=== PATIENT | male | born 1960 | race Caucasian/White ===

== ENCOUNTER 2017-11-26 06:03 | Inpatient (IN) | payer OTHER, BC ==
[2017-11-23 12:15] VITALS: BMI 29.6
--- NOTE | 2017-11-25 21:51 | HP ---
Admitting History and Physical - Admission Chief Complaint: right knee osteoarthritis x years History of Present Illness: 57 year old male presents today regarding his right knee. Longstanding history of right knee osteoarthritis. Patient complains of pain, limited ROM, difficulty ambulating and difficulty with activities of daily living. Patient has failed conservative treatment measures including PO medication, activity modification, injections and exercise programs. At this point, patient wishes to proceed with surgical intervention - right total knee arthroplasty - MAKOplasty. History Source: Patient - Past Medical History Cardiovascular: Yes: HTN, Hyperlipdemia Endocrine: Yes: Diabetes Mellitus - Past Surgical History Additional Past Surgical History: See written history & physical. - Smoking History Smoking history: Former smoker Have you smoked in the past 12 months: Yes If you are a former smoker, when did you quit?: 04/2017 - Alcohol/Substance Use Hx Alcohol Use: Yes (OCCASIONALLY) Home Medications - Allergies Allergies/Adverse Reactions: Allergies Allergy/AdvReac Type Severity Reaction Status Date / Time No Known Drug Allergies Allergy Verified 10/18/17 15:41 - Home Medications Home Medications: Ambulatory Orders Atorvastatin Ca [Lipitor] 10 mg PO DAILY 10/18/17 Glimepiride 4 mg PO BID 10/18/17 Lisinopril 10 mg PO HS 10/18/17 Metformin HCl [Metformin HCl ER] 1,000 mg PO BID 10/18/17 Tramadol HCl 50 mg PO QID PRN 10/18/17 Review of Systems - Review of Systems Musculoskeletal: reports: Crepitus (right knee), Decreased ROM (right knee), Joint Pain (right knee), Joint Swelling (right knee) Physical Examination Constitutional: Yes: Well Nourished, No Distress Eyes: Yes: Conjunctiva Clear HENT: Yes: Atraumatic, Normocephalic Neck: Yes: Supple Cardiovascular: Yes: Regular Rate and Rhythm Respiratory: Yes: Regular Gastrointestinal: Yes: Soft ...Rectal Exam: Yes: Deferred Musculoskeletal: Yes: Joint Stiffness (right knee), Joint Swelling (right knee) Assessment/Plan 57 year old male presents today regarding his right knee. Longstanding history of left knee osteoarthritis. Patient complains of pain, limited ROM, difficulty ambulating and difficulty with activities of daily living. Patient has failed conservative treatment measures including PO medication, activity modification, injections and exercise programs. At this point, patient wishes to proceed with surgical intervention - right total knee arthroplasty - MAKOplasty. Pros, cons, risks, benefits and alternatives of a right total knee arthroplasty - MAKOplasty , were discussed with the patient at length. Patient confirms their understanding and consents to proceed with a right total knee arthroplasty - MAKOplasty.
[2017-11-26] MEDS ORDERED: TRANEXAMIC ACID 1000 MG/10 ML VIAL IVPUSH ONE ×3 (06:24→11:03)
[2017-11-26] MEDS ORDERED: ROPIVICAINE 0.2%/MORPH PF/KETOROLAC - 51ML DISP.SYRINGE IA ONE ×3 (06:24→11:05)
[2017-11-26] MEDS ORDERED: CEFAZOLIN 2 GM in DEXTROSE 5%-WATER - 50 ML IVPB ONE (06:24)
[2017-11-26] MEDS: oxyCODONE HCL 10 MG SUSTAINED ACTING TABLET PO ONE ×2 (06:55→18:20)
[2017-11-26] MEDS: GABAPENTIN 300 MG CAPSULE (FP) PO ONE ×2 (06:55→18:20)
[2017-11-26] MEDS: CELECOXIB 200 MG CAPSULE PO ONE ×2 (06:55→18:20)
[2017-11-26] MEDS: PANTOPRAZOLE 40 MG TABLET (FP) PO ONE ×2 (06:55→18:21)
[2017-11-26] MEDS ORDERED: BUPIVACAINE LIPOSOME/PF (EXPAREL) 266 MG/20 ML VIAL ONE (07:26)
[2017-11-26] MEDS ORDERED: MIDAZOLAM HCL 2 MG/2 ML SINGLE DOSE VIAL ONE ×2 (07:27→08:19)
[2017-11-26] MEDS ORDERED: BUPIVACAINE HCL/PF 2.5 MG/ML - 30 ML VIAL IJ ONE ×2 (07:28→07:43)
[2017-11-26] MEDS ORDERED: SODIUM CHLORIDE 0.9% P/F 10 ML VIAL IJ ONE (07:28)
[2017-11-26] MEDS ORDERED: PROPOFOL 20 ML ONE ×7 (08:19→10:50)
[2017-11-26] MEDS ORDERED: SUCCINYLCHOLINE CHLORIDE 200 MG/10 ML VIAL ONE (08:19)
--- NOTE | 2017-11-26 08:20 | PN ---
Progress Note (short form) - Note Progress Note: Pt counseled preoperatively about strict diabetes management. Current A1c is 8.5 down from 10+ previously. He states that BG over the last 2 weeks has been 200's and 319 once but now is in the low 100s. I told him that he is high risk for infection unless he maintains strict glycemic control. He must carefully regulate his diet. Diabetes management isn't strictly a matter of taking prescribed medications without any personal responsibility for lifestyle. If he does not manage his diabetes well and gets an infection then that will require further surgeries and months of treatment and in the end the final result will be compromised. We discussed this preoperatively as well and I gave him information about periprosthetic joint infections to help motivate him to adopt a healthy lifestyle before surgery.
[2017-11-26] MEDS ORDERED: ePHEDrine SULFATE 50 MG/1 ML AMPULE ONE (08:41)
[2017-11-26] MEDS ORDERED: VANCOMYCIN 1,000 MG VIAL (RESTRICTED TO ID ONLY) IVPB ONE ×2 (09:28→11:02)
[2017-11-26] MEDS ORDERED: ceFAZolin SODIUM 1 GM VIAL ONE (11:27)
[2017-11-26] MEDS ORDERED: ONDANSETRON 4 MG/2 ML VIAL ONE (11:27)
[2017-11-26] MEDS ORDERED: DEXAMETHASONE SOD PHOSPHATE 4 MG/1 ML VIAL ONE (11:27)
[2017-11-26] MEDS ORDERED: TRANEXAMIC ACID 1000 MG/10 ML VIAL ONE (11:27)
--- NOTE | 2017-11-26 11:34 | OP ---
Operative Note - Note: Operative Date: 11/26/17 Pre-Operative Diagnosis: right knee OA Operation: Right SUKH TKA, removal of hardware Post-Operative Diagnosis: Same as Pre-op Surgeon: Juwan Holbrook Store Loss Prevention Manager: Gila Llamas Anesthesia: Spinal Estimated Blood Loss (mls): 100
[2017-11-26] MEDS ORDERED: ONDANSETRON 4 MG/2 ML VIAL IVPUSH PRN ×2 (11:35→12:07)
[2017-11-26] MEDS ORDERED: MAGNESIUM HYDROX 2400MG/30ML ORAL SUSPENSION 30 ML CUP PO PRN (11:35)
[2017-11-26] MEDS ORDERED: MAG HYDROX/AL HYDROX/SIMETH 30 ML UNIT-DOSE CUP PO PRN (11:35)
[2017-11-26] MEDS ORDERED: ACETAMINOPHEN 1000 MG/100 ML VIAL (NON FORMULARY) IVPB ONE ×2 (11:40→12:10)
[2017-11-26] MEDS ORDERED: LACTATED RINGERS SOLUTION 1,000 ML IV SCH (11:45)
[2017-11-26] MEDS ORDERED: traMADol HCL 50 MG TABLET PO ONE (12:05)
[2017-11-26] MEDS ORDERED: PROMETHAZINE HCL 25 MG/1 ML VIAL IVPB PRN (12:07)
[2017-11-26] MEDS ORDERED: oxyCODONE HCL 5 MG TABLET PO PRN (12:07)
[2017-11-26] MEDS ORDERED: KETOROLAC TROMETHAMINE 30 MG/1 ML VIAL IVPB ONE (12:08)
[2017-11-26] MEDS ORDERED: ONDANSETRON 4 MG/2 ML VIAL IVPUSH ONE (12:32)
[2017-11-26] MEDS ORDERED: oxyCODONE HCL 5 MG TABLET ONE (13:14)
[2017-11-26] MEDS: oxyCODONE HCL 5 MG TABLET PO PRN ×3 (16:20→22:43)
[2017-11-26] MEDS: GLIMEPIRIDE 2 MG TABLET (FP) PO SCH (16:20)
[2017-11-26] MEDS: KETOROLAC TROMETHAMINE 30 MG/1 ML VIAL IVPUSH SCH ×3 (18:19→22:44)
[2017-11-26] MEDS: traMADol HCL 50 MG TABLET PO SCH ×3 (18:19→22:44)
[2017-11-26] MEDS: CEFAZOLIN 2 GM/D5W 2 GM/50 ML ML IVPB SCH (18:20)
[2017-11-26] MEDS ORDERED: DEXAMETHASONE SOD PHOSPHATE 10 MG/1 ML VIAL IVPB ONE (20:00)
[2017-11-26] MEDS: SENNOSIDES/DOCUSATE COMBO (SENNA PLUS) TABLET (UD) PO SCH (21:29)
[2017-11-26] MEDS: oxyCODONE HCL 10 MG SUSTAINED ACTING TABLET PO SCH (21:29)
[2017-11-26] MEDS: LISINOPRIL 10 MG TABLET (FP) PO SCH (21:30)
[2017-11-26] MEDS: CELECOXIB 200 MG CAPSULE PO SCH (21:30)
[2017-11-26] MEDS: ATORVASTATIN CA 10 MG TABLET (FP) PO SCH (21:30)
[2017-11-26] MEDS: ASCORBIC ACID 500 MG TABLET (FP) PO SCH (21:30)
[2017-11-26] MEDS: GABAPENTIN 300 MG CAPSULE (FP) PO SCH (21:30)
[2017-11-27] MEDS: CEFAZOLIN 2 GM/D5W 2 GM/50 ML ML IVPB SCH (02:00)
[2017-11-27] MEDS: traMADol HCL 50 MG TABLET PO SCH ×4 (05:30→23:09)
[2017-11-27] MEDS: KETOROLAC TROMETHAMINE 30 MG/1 ML VIAL IVPUSH SCH (05:35)
[2017-11-27] MEDS: oxyCODONE HCL 5 MG TABLET PO PRN ×2 (06:00→23:09)
[2017-11-27] MEDS: GLIMEPIRIDE 2 MG TABLET (FP) PO SCH ×2 (06:27→16:23)
[2017-11-27 08:13] LABS: HEMATOCRIT 34.8 % (35.4-49); HEMOGLOBIN 11.8 GM/dl (11.7-16.9); MCH 28.6 pg (25.7-33.7); MEAN CELL VOLUME 84.1 fl (80-96); MEAN PLT VOLUME 9.5 fl (7.5-11.1); PLATELET COUNT 239 K/MM3 (134-434); RBC 4.13 M/mm3 (4.00-5.60); WHITE BLOOD COUNT 11.6 K/mm3 (4.0-10.8)
[2017-11-27] MEDS: ASPIRIN 325 MG TABLET PO SCH (08:13)
[2017-11-27 08:49] LABS: ANION GAP 10 (8-16); BLOOD UREA NITROGEN 24 mg/dl (7-18); CALCIUM 8.9 mg/dl (8.4-10.2); CHLORIDE 100 mmol/L (98-107); CO2 23 mmol/L (22-28); CREATININE 1.2 mg/dl (0.6-1.3); GLUCOSE,RANDOM 178 mg/dl (74-106); POTASSIUM 4.6 mmol/L (3.5-5.1); SODIUM 133 mmol/L (136-145)
[2017-11-27] MEDS: MULTIVITAMINS (DAILY MVI) TABLET (FP) PO SCH (10:18)
[2017-11-27] MEDS: oxyCODONE HCL 10 MG SUSTAINED ACTING TABLET PO SCH ×2 (10:18→21:12)
[2017-11-27] MEDS: GABAPENTIN 300 MG CAPSULE (FP) PO SCH ×2 (10:18→21:12)
[2017-11-27] MEDS: SENNOSIDES/DOCUSATE COMBO (SENNA PLUS) TABLET (UD) PO SCH ×2 (10:19→21:12)
[2017-11-27] MEDS: PANTOPRAZOLE 40 MG TABLET (FP) PO SCH (10:19)
[2017-11-27] MEDS: CELECOXIB 200 MG CAPSULE PO SCH ×2 (10:19→21:12)
[2017-11-27] MEDS: ASCORBIC ACID 500 MG TABLET (FP) PO SCH ×2 (10:19→21:12)
--- NOTE | 2017-11-27 15:41 | PN ---
Progress Note (short form) - Note Progress Note: 57M POD1 s/p right TKR makoplasty under spinal anesthetic with peripheral nerve blocks for post operative pain relief. Pt states that pain is well controlled and reports no anesthetic complications. AVSS. Motor and sensory function intact in bilateral lower extremities. Continue current regimen.
[2017-11-27] MEDS: ATORVASTATIN CA 10 MG TABLET (FP) PO SCH (21:12)
[2017-11-27] MEDS: LISINOPRIL 10 MG TABLET (FP) PO SCH (21:12)
[2017-11-28] MEDS: GLIMEPIRIDE 2 MG TABLET (FP) PO SCH (06:33)
[2017-11-28] MEDS: traMADol HCL 50 MG TABLET PO SCH ×2 (06:33→12:15)
[2017-11-28 06:40] VITALS: TEMP 98.4
[2017-11-28] MEDS: ASPIRIN 325 MG TABLET PO SCH (07:48)
[2017-11-28] MEDS: oxyCODONE HCL 5 MG TABLET PO PRN (07:48)
--- NOTE | 2017-11-28 08:13 | DS ---
Physical Examination Vital Signs: Vital Signs Temperature 98.4 F 11/28/17 06:00 Pulse Rate 76 11/28/17 06:00 Respiratory Rate 20 11/28/17 06:00 Blood Pressure 131/66 11/28/17 06:00 O2 Sat by Pulse Oximetry (%) 100 11/28/17 06:00 Discharge Summary Reason For Visit: RIGHT KNEE OSTEOARTHRITIS Current Active Problems Osteoarthritis of right knee (Acute) Procedures: Principal: right TKA, removal of hardware Hospital Course: Admitted for elective surgery. Procedure performed without complications. Pt received postoperative antibiotic prophylaxis and DVT ppx. Ambulated with physical therapy. Stable for discharge home with outpatient followup. Condition: Stable - Instructions Diet, Activity, Other Instructions: Dr. Holbrook - Knee Replacement Instructions Keep the Aquacel dressing on until removed by Dr. Holbrook in 10-14 days - it is antibacterial and waterproof and you can shower with it on. Call the office for a follow-up appointment with Dr. Holbrook in 10-14 days. Take one Aspirin 325mg daily for 6 weeks to prevent blood clots in your legs. Take one Pantoprazole 40mg daily for 6 weeks to protect against heartburn and ulcers. Take Cephalexin (antibiotic) 3x/day for 10 days to help prevent skin infection. Take Celebrex 200mg twice daily for 30 days to reduce swelling and inflammation. Take a multivitamin, stool softener, and extra Vitamin C supplement daily. For pain: *Mild pain (1-3/10): Take 1 Tramadol tablet every 4 hours as needed. Moderate pain (4-6/10): Take 1 Tramadol tablet and 1 Percocet tablet every 4 hours as needed. Severe pain (7-10/10): Take 1 Tramadol tablet and 2 Percocet tablets every 4 hours as needed. Activity: You can put as much weight on the operative leg as you want. Right after you get home, there will be a physical therapist coming to your house to help you walk around and bend/straighten your knee. After your follow-up appointment, you will be sent for more intensive outpatient physical therapy which will include machines and equipment that the home therapist cannot bring to your house. Always use a walker or cane for balance and to prevent falls. Expect to see swelling/bruising from the operative site all the way down to your toes. Wear the compression stocking on the operative side during the day to minimize how much swelling there is in your foot/ankle. Don't wear the stocking at night. You don't have to wear a stocking on the other side. Disposition: [facility]NS/HOME HEALTH CARE - Home Medications Comprehensive Discharge Medication List: Ambulatory Orders Atorvastatin Ca [Lipitor] 10 mg PO DAILY 10/18/17 Glimepiride 4 mg PO BID 10/18/17 Lisinopril 10 mg PO HS 10/18/17 Metformin HCl [Metformin HCl ER] 1,000 mg PO BID 10/18/17 Ascorbic Acid [Vitamin C -] 500 mg PO BID tablet 11/28/17 Aspirin [ASA -] 325 mg PO DAILY@0800 tablet 11/28/17 Celecoxib [CeleBREX -] 200 mg PO BID #60 capsule 11/28/17 Cephalexin Monohydrate [Keflex -] 500 mg PO TID #30 capsule 11/28/17 Multivitamins [Multivit ([facility] Formulary)] 1 tab PO DAILY tab 11/28/17 Oxycodone HCl/Acetaminophen [Percocet 5-325 mg Tablet] 1 - 2 tab PO Q4H PRN #60 tablet MDD 10 11/28/17 Pantoprazole Sodium [Protonix -] 40 mg PO DAILY #40 tablet.ec 11/28/17 Sennosides/Docusate Sodium [Pericolace -] 2 tablet PO BID tablet 11/28/17 traMADol HCL [Ultram -] 50 mg PO Q4H PRN #42 tablet MDD 6 11/28/17
--- NOTE | 2017-11-28 08:15 | PN ---
Progress Note (short form) - Note Progress Note: Pt seen and examined yesterday evening. Doing well Selected Entries 11/27/17 11/27/17 22:00 22:39 Temperature 98.7 F Respiratory 20 Rate Blood Pressure 102/56 O2 Sat by Pulse 98 Oximetry (%) Oxygen Delivery Room Air Method Laboratory Tests 11/27/17 11/27/17 07:25 07:25 WBC 11.6 H Hgb 11.8 Hct 34.8 L Plt Count 239 Sodium 133 L Potassium 4.6 Chloride 100 Carbon Dioxide 23 Anion Gap 10 BUN 24 H Creatinine 1.2 Creat Clearance w eGFR > 60 Random Glucose 178 H Calcium 8.9 Gen: NAD RLE: c/d/i, NVID A/P s/p R TKA with MAKOplasty PT/OOB D/C in AM after PT
[2017-11-28 08:17] LABS: HEMATOCRIT 31.6 % (35.4-49); MCH 29.4 pg (25.7-33.7); MCHC 34.8 g/dl (32.0-35.9); MEAN CELL VOLUME 84.6 fl (80-96); MEAN PLT VOLUME 9.1 fl (7.5-11.1); PLATELET COUNT 185 K/MM3 (134-434); RBC 3.73 M/mm3 (4.00-5.60); RDW 13.5 % (11.9-15.9); WHITE BLOOD COUNT 8.3 K/mm3 (4.0-10.8)
[2017-11-28 09:09] LABS: ANION GAP 8 (8-16); BLOOD UREA NITROGEN 21 mg/dl (7-18); CHLORIDE 101 mmol/L (98-107); CO2 25 mmol/L (22-28); CREATININE 1.1 mg/dl (0.6-1.3); GLUCOSE,RANDOM 163 mg/dl (74-106); POTASSIUM 4.6 mmol/L (3.5-5.1); SODIUM 134 mmol/L (136-145)
[2017-11-28] MEDS: CELECOXIB 200 MG CAPSULE PO SCH (09:17)
[2017-11-28] MEDS: oxyCODONE HCL 10 MG SUSTAINED ACTING TABLET PO SCH (09:18)
[2017-11-28] MEDS: GABAPENTIN 300 MG CAPSULE (FP) PO SCH (09:18)
[2017-11-28] MEDS: ASCORBIC ACID 500 MG TABLET (FP) PO SCH (09:18)
[2017-11-28] MEDS: MULTIVITAMINS (DAILY MVI) TABLET (FP) PO SCH (09:19)
[2017-11-28] MEDS: PANTOPRAZOLE 40 MG TABLET (FP) PO SCH (09:19)
[2017-11-28] MEDS: SENNOSIDES/DOCUSATE COMBO (SENNA PLUS) TABLET (UD) PO SCH (09:19)
[2017-11-28 11:44] VITALS: BP 130/72; PULSE 78
--- NOTE | 2017-11-29 08:52 | SPEC ---
DATE OF OPERATION: 11/26/2017 PREOPERATIVE DIAGNOSIS: Right knee osteoarthritis. POSTOPERATIVE DIAGNOSIS: Right knee osteoarthritis. PROCEDURE: Right total knee replacement with MAKOplasty robotic navigation and removal of hardware. ATTENDING: Juwan Holbrook MD VAN LOADER: FILOMENA Ortega. ANESTHESIA: Spinal plus sedation. ESTIMATED BLOOD LOSS: 100 mL. COMPLICATIONS: None. DISPOSITION: The patient was transferred to the PACU in stable condition. IMPLANTS USED: Frida Triathlon size 5 femoral component, size 4 tibial component, 32-mm patellar component, 11-mm polyethylene component. INDICATIONS: This is a 57-year-old male who presented to the office complaining of severe right knee pain and history of previous knee injury and arthroscopic ACL reconstruction surgery as well as meniscectomy. 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 He was initially nonoperatively with injections, medications, and physical therapy, but continued to have severe pain and ambulatory dysfunction. He was therefore indicated for a right total knee replacement with MAKOplasty robotic navigation. The risks, benefits, and alternatives to the procedure were explained to the patient in great detail, and he elected to proceed with the surgery. DESCRIPTION OF PROCEDURE: On the day of surgery, the patient was taken to the operating room and placed on the OR table. Spinal anesthesia was administered by the anesthesiologist. The patient was then positioned supine on the table and all bony prominences were padded. The knee was then prepped and draped in the usual sterile fashion and intravenous antibiotics were given for infection prophylaxis. A surgical time-out was then performed with the team, and the patients identity, procedure, side, availability of implants, and the administration of antibiotics was confirmed. With the knee flexed, a midline incision was made and carried down through the subcutaneous fat to the underlying retinaculum. A medial parapatellar arthrotomy was performed. This was followed by a subperiosteal dissection of the tissue off the proximal, medial tibia. A portion of fat pad was removed from under the patellar tendon, and a small portion of fat was excised off the distal supracondylar femur. Electrocautery and an [employer] bipolar sealing device were used to achieve hemostasis. The knee was then flexed further and the anterior horn of the lateral meniscus was released from the midline. Next, the anterior and posterior cruciate ligaments were transected. Grade 4 changes were noted diffusely throughout the knee. Femoral and tibial checkpoints were then placed in the appropriate location using a mallet. Two parallel bicortical self-drilling pins were placed in the tibial diaphysis after making stab incisions and bluntly dissecting down to bone. Two pins were then placed in the distal supracondylar femur. The [employer] navigation arrays were then attached to both the femoral and tibial pins and the lower extremity was then registered to the robotic navigation device using various joint movements, as well as inputting several dozen reference points. The knee was then taken through a full range of motion with a corrective force applied. Alignment in varus/valgus as well as flexion/extension and soft tissue balance was measured in various positions. The navigation device showed a numerical and graphic representation of the soft tissue balance. The components were repositioned virtually using the software until optimal soft tissue balance was achieved on screen. Once this was accomplished, the final plan was saved and sent to the robot. Self-retaining retractors were then placed at the joint line for exposure and protection of the collateral ligaments. The robot was brought into the sterile field and registered with the navigation device. The robotic arm with attached oscillating saw blade was then used to perform femoral and tibial bone cuts as per the saved software plan. The femoral box cut was made using the appropriately sized manual cutting guide. The knee was then irrigated. Trial components were placed and the knee was taken through a full range of motion to assess soft tissue balance and alignment. The range of motion was found to be excellent and the soft tissue balance was optimal and according to plan. The knee was then put into extension and the patella everted. The synovium around the patella was circumscribed with electrocautery. A caliper was used to measure the patellar thickness and a saw was then used to resect the patella at the chondro-osseous junction. The cut surface was then sized and drilled for the appropriate patellar button, with care taken to medialize it. A trial patella was then placed and the knee was again taken through a full range of motion. The knee was found to have both good balance and good patellar tracking. All of the components were removed except the tibial base plate. The appropriate instrumentation was used to drill and punch the proximal tibia for the keel of the final component. All bony surfaces were then cleaned with pulsatile lavage and dried. Bone cement was then prepared on the back table, and final components were cemented in place in the usual fashion. Extruded cement was removed. The polyethylene trial was placed, the knee was put into extension, and axial pressure was applied for compression while the cement hardened. The patellar button was similarly cemented into place. Once the cement had hardened, the knee was taken through a full range of motion to assess stability, balance, and patellar tracking. This was found to be optimal and the trial polyethylene was exchanged for the appropriately sized real implant. The wound was then thoroughly irrigated with normal saline. A 3-minute dilute Betadine lavage was performed. The knee was again irrigated using a pulsatile lavage device. A periarticular injection was used to locally infiltrate the capsular tissues surrounding the implant and prosthesis. Then No. 1 Polysorb and 0 VLoc 180 barbed sutures were used to close the arthrotomy. Then No. 1 Polysorb and 2-0 VLoc 90 sutures were used in the subcutaneous tissues. Then 4-0 undyed Vicryl and Dermabond skin adhesive was used to close the stab incisions made for the navigation pins. The skin was closed using both 3-0 VLoc 90 suture in a running subcuticular fashion and Dermabond skin adhesive. Once this was completed a sterile Aquacel dressing and compressive Bhavesh-wrap was applied. The patient was then awakened and taken to the PACU in stable condition. ADDENDUM Femoral and tibial interference screws from the previous ACL reconstruction were removed prior to placement of the total knee replacement components. For this reason, this case will be billed with modifier 22 in light of the additional removal of hardware that was necessary. Louie [id number]
--- NOTE | 2017-12-12 07:19 | PATH ---
Surgical Pathology Report Patient Name: CASSIDY MADISON Med. Rec. #: [id number] /Age/Gender: 1960 (Age: 57) / M Account: [id number] Location: [facility] MED-SURG Taken: 11/26/2017 Received: 11/26/2017 Reported: 11/28/2017 Physicians: Juwan Holbrook M.D. Specimen(s) Received A: HARDAWARE OF RIGHT KNEE B: RIGHT KNEE BONE Clinical History Osteoarthritis of right knee Final Diagnosis A. HARDWARE OF RIGHT KNEE, REMOVAL: HARDWARE. GROSS EXAMINATION ONLY. B. RIGHT KNEE BONE, RESECTION: DEGENERATIVE JOINT DISEASE, RIGHT KNEE. Electronically Signed Yoel Martin M.D. Gross Description A. Received fresh labeled "right knee hardware," are 2 ritchie metallic screws measuring 2.0 and 2.5 cm in length. No soft tissue is present. No sections are submitted, gross only. B. Received in formalin labeled "right knee bone," is a 12.0 x 9.0 x 1.8 cm aggregate of multiple portions of bone and soft tissue. The tibial plateau measures 7.5 x 6.0 x 1.5 cm. There are multiple areas of eburnation present, measuring up to 2.6 cm in greatest dimension. The remaining articular surfaces are tai-yellow and diffusely granular. The underlying trabecular bone is yellow and hard. It Compliance Analyst sections are submitted in one cassette, following decalcification. 11/27/2017 saudi11/27/2017
== END 2017-11-28 12:00 | disposition home health service (06) | DRG 470 ==
LOC: FM/S 06:03
PROVIDERS: ADMIT Student in an Organized Health Care Education/Training Program; ATTEND Student in an Organized Health Care Education/Training Program
PROC: 8E0Y0CZ Robotic Assisted Procedure of Lower Extremity, Open Approach (ICD-10-PCS; 2017-11-26)
PROC: 0SRC0J9 Replacement of Right Knee Joint with Synthetic Substitute, Cemented, Open Approach (ICD-10-PCS; principal; 2017-11-26 08:56)
DX: M17.11 Unilateral primary osteoarthritis, right knee (principal); I10 Essential (primary) hypertension; E78.5 Hyperlipidemia, unspecified; E11.9 Type 2 diabetes mellitus without complications; Z87.891 Personal history of nicotine dependence
CPT/HCPCS: 36415; 73560-TC-RT-FY; 80048; 82962; 85027; 88300-TC; 88304-TC; 88311-TC; 94760; 97116-GP; 97162-GP; J0131; J1100

== ENCOUNTER 2019-08-08 10:49 | Emergency (ER) | payer BC, OTHER ==
[2019-08-08 10:57] VITALS: BP 161/85; PULSE 112; TEMP 98.7
--- NOTE | 2019-08-08 11:09 | PDOC ---
Rapid Medical Evaluation Chief Complaint: Cold Symptoms Time Seen by Provider: 08/08/19 11:02 Medical Evaluation: Allergies Allergy/AdvReac Type Severity Reaction Status Date / Time No Known Drug Allergies Allergy Verified 10/18/17 15:41 Vital Signs Temp Pulse Resp BP Pulse Ox 98.7 F 112 H 20 161/85 100 08/08/19 10:53 08/08/19 10:53 08/08/19 10:53 08/08/19 10:53 08/08/19 10:53 08/08/19 11:05 HPI: The patient is a 58 y/o male with htn and is a non smoker, who presents for dry hacking cough x 5-6 days. Pt placed on prednisone, cough medication, zpak, and an inhaler for tx of bronchitis. The patient has no exposure to coronavirus. - Recent travel. They are concerned they have coronavirus and present for testing. - difficulty breathing, shortness of breath, chest pain, lightheadedness, dizziness nausea, vomiting, and diarrhea. Other 12 point ROS reviewed and negative. EXAM: General: NAD, well-appearing, AAO x3. tachy at 112 ENT: No rhinorrhea or nasal congestion. Neck: FROM, no midline tenderness Lungs: Clear to auscultation bilateral without wheezes rales or rhonchi. Normal excursion. Patient is able to speak in full sentences. Heart: Regular rhythm, S1-S2 present, no murmurs rubs or gallops. Abdomen: Non-distended MSK/Extremities: no decreased ROM, no obvious deformities. No cyanosis Neuro: Normal gait, cranial nerves II through XII grossly intact. SKIN: No rashes, bruising. Color normal appearing A/P: Cough Patient has hx of htn, denies recent travel and known COVID exposure. Patient does not meet criteria for testing at this time. cxr ordered Pt is on lisinopril. Would recommend robitussin ac and addit course of prendisone 08/08/19 11:31 Cxr improved beatris compared to previous xray Discharge Disposition - Diagnosis Cough - Discharge Dispostion Disposition: HOME Condition at time of disposition: Good - Referrals - Patient Instructions Printed Discharge Instructions: DI for Cough -- Adult, DI for HO Inhibitor Cough Additional Instructions: Please take robitussin AC as needed. drink plenty of fluids - Post Discharge Activity
== END 2019-08-08 11:48 | disposition home or self-care (01) ==
LOC: JER 10:49
DX: R05 Cough (principal)
CPT/HCPCS: 71045-TC-FY; 99283-25